=== PATIENT | female | born 1950 | race Two or more races ===

== ENCOUNTER 2024-06-14 19:57 | Emergency (ER) | payer MEDICAID, SELFPAY ==
--- NOTE | 2024-06-14 20:01 | ED_ITS ---
HPI - General Adult General Chief complaint: General Medical Stated complaint: BP unstable Time Seen by Provider: 06/14/24 23:16 Source: patient and family Mode of arrival: ambulatory Limitations: no limitations History of Present Illness ED Provider: Dr. Carolyn Barnes HPI narrative: Patient comes to emergency room complaining of high blood pressure. Patient states that at home she noticed that her blood pressure was 147/90. patient states that she takes lisinopril 5 mg daily. Patient reports dizziness. Patient denies unsteadiness, denies room spinning, denies lightheadedness. No chest pain or shortness of breath. No lower extremity edema. At this time, patient is asymptomatic. On arrival, patient's blood pressure 157/70 Related Data Previous Rx's ?Medication ?Instructions ?Recorded lisinopril 10 mg tablet 10 mg PO DAILY #30 tabs 06/14/24 Allergies Allergy/AdvReac Type Severity Reaction Status Date / Time aspirin Allergy Anaphylaxis Verified 06/14/24 20:06 Review of Systems 2 Review of Systems: Constitutional : No Weight loss, No Fever, No Chills, No Night Sweats, No Fatigue, No Malaise ENT/Mouth : No Hearing loss, No Ear Pain, No Nasal Congestion, No Sinus Pain, No Hoarseness, No sore throat, No Rhinorrhea, No Swallowing Difficulty Eyes: No Eye Pain, No Swelling, No Redness, No Foreign Body, No Discharge, No Vision Changes Cardiovascular : Complaining of high blood pressure, No Chest Pain, No SOB, No Dyspnea on Exertion, No Orthopnea, No Edema, No Palpitations Respiratory : No Cough, No Sputum, No Wheezing, No Smoke Exposure, No Dyspnea Gastrointestinal : No Nausea, No Vomiting, No Diarrhea, No Constipation, No abdominal Pain, No Hematochezia, No Melena Genitourinary : no irregular bleeding, No Dysuria, No Urinary Frequency, No Hematuria, No Urinary Incontinence, No Urgency, No Flank Pain, No Urinary Flow Changes, No Hesitancy Musculoskeletal : No joint pain, No Myalgias, No Joint Swelling Skin : No Skin Lesions, No rash Neuro : No Weakness, No Numbness, No Paresthesias, No Loss of Consciousness, No Dizziness, No Headache Psych : No Anxiety/Panic, No Depression, No SI/HI/AH/VH, No Social Issues, Heme/Lymph: No Bruising, No Bleeding,No Lymphadenopathy Endocrine : No Polyuria, No Polydipsia, No Temperature Intolerance Physical Exam ED Vital Signs: Vital Signs - 24 hr 06/14/24 20:02 Temperature 98.2 F Pulse Rate 95 Respiratory Rate 18 Blood Pressure 157/70 H Pulse Oximetry 100 Oxygen Delivery Method Room Air BMI result Body Mass Index 19.1 Const Other: Appearance: Alert. Oriented X3. No acute distress. Eyes: Pupils equal, round and reactive to light. ENT: Pharynx normal. Neck: Normal inspection. Neck supple. No lymph nodes noted. No crepitus CVS: Normal heart rate and rhythm. Pulses normal. Normal S1 and S2 Respiratory: No respiratory distress. Breath sounds normal. No Wheezing. No rales Abdomen: Soft and nontender. No rigidity. No distention. Skin: Skin warm and dry. Normal skin color. Normal skin turgor. Extremities: No lower extremity edema. No Lacerations. No Rash Neuro: Oriented X 3. No motor deficit. No sensory deficit. Moving all extremities. No slurred speech. CN 2 through 12 grossly intact Psych: calm, cooperative, normal affect Course Course Course Narrative: This is an RME performed by Papo Abebe TRACK REPAIR WORKER: Additional HPI, ROS, PE not included below will be deferred to primary provider. Patient is a 73-year-old female who presents emergency department for evaluation. Home automated blood pressure machine with a wrist cuff, blood pressure reading of 147/90. Endorsing dizziness, headache, palpitations intermittently. Reports that she takes lisinopril 5 mg daily, has not had any recent dosage changes. Denies vision changes, neck pain or stiffness, chest pain. Plan: Given mildly elevated blood pressure reading 157/70 with associated dizziness palpitations will obtain serum labs in addition to ECG, viral serologies Medical Decision Making Medical Decision Making [facility] Narrative: My interpretation of EKG: Normal sinus rhythm, heart rate 82, no ST segment depression or elevation, no T-wave inversion, QTC 425 My interpretation of labs: Normal hematology and chemistry Patient's blood pressure in the 140s systolic. Discussed with the patient to increase her lisinopril to 10 mg. Patient agrees with plan. Patient will follow-up with PCP Lab Data [facility] Lab Attestation statement: I reviewed the patient's lab results. 06/14/24 20:28 06/14/24 20:28 Labs: Lab Results 06/14/24 Range/Units 20:28 WBC 6.1 (4.8-10.8) X10*3/uL RBC 3.99 L (4.20-5.50) X10*6/uL Hgb 11.9 L (12.0-16.0) g/dl Hct 37.5 (37.0-47.0) % MCV 94.0 (80.0-98.0) fL MCH 29.8 (27.0-33.0) pg MCHC 31.7 (31.0-35.0) g/dl RDW 13.8 (11.0-16.0) % Plt Count 191 (160-400) X10*3/uL MPV 9.4 (9.4-12.3) fL Immature Gran % (Auto) 0.2 (0.0-0.4) % Neut % (Auto) 47.9 (45-73) % Lymph % (Auto) 42.4 H (20-40) % Bracken % (Auto) 6.2 (2-11) % Eos % (Auto) 2.5 (0-4) % Baso % (Auto) 0.8 (0-2) % Lymph # (Auto) 2.6 (1.2-4.9) X10*3/uL Bracken # (Auto) 0.4 (0.1-1.2) X10*3/uL Eos # (Auto) 0.2 (0.0-0.4) X10*3/uL Baso # (Auto) 0.1 (0.0-0.2) X10*3/uL Abs Immat Gran (auto) 0.01 (0.00-0.03) X10*3/uL Absolute Neuts (auto) 2.9 (2.0-8.3) x10*3/uL Absolute Nucleated RBC 0.000 (0.0-0.012) X10*3/uL Nucleated RBC % (auto) 0.0 (0.0-0.2) /100WBC PT 12.0 (10.9-12.4) SEC INR 1.0 (0.9-1.1) Sodium 144 (135-145) mmol/L Potassium 4.0 (3.3-5.1) mmol/L Chloride 111 H (96-108) mmol/L Carbon Dioxide 24 (22-29) mmol/L Anion Gap 13 (12-20) BUN 16 (9-16) mg/dL Creatinine 0.67 (0.5-1.4) mg/dL Estim Creat Clear Calc 57.5 Estimated GFR > 60 Random Glucose 129 H (60-115) mg/dL Calcium 8.9 (8.4-10.2) mg/dL Magnesium 2.1 (1.6-2.6) mg/dL Total Bilirubin 0.2 (0.0-1.0) mg/dL AST 21 (5-31) U/L ALT 9 (0-31) U/L Alkaline Phosphatase 94 (39-117) U/L Total Protein 6.8 (6.5-8.0) g/dL Albumin 3.9 (3.5-5.0) g/dL Influenza Type A (PCR) NEGATIVE (Negative) Influenza Type B (PCR) NEGATIVE (Negative) RSV RNA Qual (PCR) NEGATIVE (Negative) SARS-CoV-2 RNA (RT-PCR) NEGATIVE (Negative) Discharge Plan Discharge Clinical Impression: Chronic hypertension, Dizziness Patient Disposition: Home, Self-Care Instructions: Chronic Hypertension (ED), Dizziness (ED) Additional Instructions: Please follow-up with your primary care physician tomorrow. If you have any worsening or new symptoms, please return to the emergency room or call 911 Prescriptions: New lisinopril 10 mg tablet 10 mg PO DAILY Qty: 30 2RF
[2024-06-14 20:02] VITALS: BP 157/70; PULSE 95; RESP 18; TEMP 36.8; O2SAT 100; BMI 19.1
--- NOTE | 2024-06-14 20:05 | ECG_ITS ---
Test Reason : DIZZINESS Blood Pressure : */* mmHG Vent. Rate : 82 BPM Atrial Rate : 82 BPM P-R Int : 152 ms QRS Dur : 72 ms QT Int : 364 ms P-R-T Axes : 52 55 58 degrees QTcB Int : 425 ms Normal sinus rhythm Normal ECG No previous ECGs available Referred By: Dawn Abebe Electronically Signed By: BERTHA CARBAJAL MD
[2024-06-14 20:34] LABS: MANUAL DIFF FLAG NO
[2024-06-14 20:35] LABS: Basophils Absolute Auto 0.1 X10*3/uL (0.0-0.2); Basophils Percent Auto 0.8 % (0-2); Eosinophils Absolute Auto 0.2 X10*3/uL (0.0-0.4); Eosinophils Percent Auto 2.5 % (0-4); Hematocrit 37.5 % (37.0-47.0); Hemoglobin 11.9 g/dl (12.0-16.0); Imm Gran Abs Auto 0.01 X10*3/uL (0.00-0.03); Imm Gran Pct Auto 0.2 % (0.0-0.4); Lymphocytes Absolute Auto 2.6 X10*3/uL (1.2-4.9); Lymphocytes Percent Auto 42.4 % (20-40); Mean Corpuscular HGB Conc 31.7 g/dl (31.0-35.0); Mean Corpuscular Hemoglobin 29.8 pg (27.0-33.0); Mean Platelet Volume 9.4 fL (9.4-12.3); Monocytes Absolute Auto 0.4 X10*3/uL (0.1-1.2); Monocytes Percent Auto 6.2 % (2-11); Neutrophils Absolute Auto 2.9 x10*3/uL (2.0-8.3); Neutrophils Percent Auto 47.9 % (45-73); Platelet Count 191 X10*3/uL (160-400); Red Blood Count 3.99 X10*6/uL (4.20-5.50); Red Cell Distribution Width 13.8 % (11.0-16.0); White Blood Count 6.1 X10*3/uL (4.8-10.8)
[2024-06-14 20:49] LABS: Alanine Aminotransferase 9 U/L (0-31); Albumin Level 3.9 g/dL (3.5-5.0); Alkaline Phosphatase 94 U/L (39-117); Anion Gap 13 (12-20); Aspartate Amino Transferase 21 U/L (5-31); Bilirubin Total 0.2 mg/dL (0.0-1.0); Blood Urea Nitrogen 16 mg/dL (9-16); Calcium 8.9 mg/dL (8.4-10.2); Carbon Dioxide 24 mmol/L (22-29); Chloride 111 mmol/L (96-108); Creatinine Clr Calc Pharmacy 57.5; Estimated Glomerular Filt Rate > 60; Glucose Random 129 mg/dL (60-115); Magnesium 2.1 mg/dL (1.6-2.6); Sodium 144 mmol/L (135-145); Total Protein 6.8 g/dL (6.5-8.0)
[2024-06-14 21:11] LABS: Influenza A PCR NEGATIVE (Negative); Influenza B PCR NEGATIVE (Negative); Resp Syncy Virus RNA Qual PCR NEGATIVE (Negative); SARS COV2 PCR INHOUSE NEGATIVE (Negative)
--- OUTSIDE RECORDS SUMMARY | 2024-06-14 23:35 | XMS_ITS | Clinical Summary ---
Author Organization [facility] Address [address] [place] [address] Care Team Providers Care Manager Field Name Role Phone David Atwood MD Primary Care Provider [phone] Allergies Active Allergy Reactions Criticality Noted Date Comments Aspirin Buff, Al Hyd-Mg Hyd Urticarial Rash Medications No known medications Social History Tobacco Use Types Packs/Day Years Used Date Smoking Tobacco: Never Assessed Comments Unknown Sex and Gender Information Value Date Recorded Sex Assigned at Not on file Legal Sex Female 12:43 AM EDT Gender Identity Not on file Sexual Orientation Not on file Plan of Treatment Health Maintenance Due Date Last Done Comments Hepatitis C Screening 1952 DTaP/Tdap/Td (1 - Tdap) 1970 Mammogram/Breast Imaging 1992 Pneumococcal 50+ years (1 of 1 - PCV) 2002 Zoster (Shingrix) (1 of 2) 2002 Bone Density 2017 COVID-19 Vaccine ( - 2023-2 5 season) 2024 Influenza (#1) 2024 RSV (1 - 1-dose 75+ series) 10/13/2027 HPV Vaccine Aged Out No longer eligi ble based on patient's age to complete this topic Hep A Aged Out No longer eligi ble based on patient's age to complete this topic Hep B Aged Out No longer eligi ble based on patient's age to complete this topic Hib Aged Out No longer eligi ble based on patient's age to complete this topic Meningococcal ACWY Aged Out No longer eligible based on patient's age to complete this topic Pap Smear Discontinued Zoster (Zostavax) Discontinued Care Teams Manager Field Relationship Specialty Start Date End Date David Atwood MD [facility] [address] [place] [address] PCP - General 11/03/08
[2024-06-14 23:44] VITALS: BP 137/77; PULSE 75; RESP 16; TEMP 36.8; O2SAT 98
== END 2024-06-14 23:45 | disposition home or self-care (01) ==
PROVIDERS: Nurse Practitioner Family; Emergency Provider Emergency Medicine
DX: R42 Dizziness and giddiness (principal); I10 Essential (primary) hypertension; Z03.818 Encounter for observation for suspected exposure to other biological agents ruled out; Z79.899 Other long term (current) drug therapy
CPT/HCPCS: 0241U; 80053; 83735; 85025; 85610; 93005; 99283

== ENCOUNTER → 2024-06-14 20:05 | Outpatient (BNV) | payer MEDICAID, SELFPAY | PROVIDERS: Emergency Provider Emergency Medicine; Visit Provider Internal Medicine Cardiovascular Disease | DX: R42 Dizziness and giddiness (principal) | CPT/HCPCS: 93010 ==

== ENCOUNTER 2024-07-02 18:30 | Emergency (ER) | payer MEDICAID, SELFPAY ==
[2024-07-02 18:39] VITALS: BP 106/49; BP 120/70; PULSE 90; PULSE 97; RESP 16; TEMP 36.8; O2SAT 100; O2SAT 97; BMI 21.5
--- OUTSIDE RECORDS SUMMARY | 2024-07-02 19:51 | XMS_ITS | Clinical Summary ---
Author Organization [facility] Address [address] [place] [address] Care Team Providers Care Hall Manager Name Role Phone David Atwood MD Primary Care Provider Allergies Active Allergy Reactions Criticality Noted Date [...] Smear Discontinued Zoster (Zostavax) Discontinued Care Teams Hall Manager Relationship Specialty Start Date End Date David Atwood MD [facility] [address] [place] [address] PCP - General 11/03/08
[2024-07-02 20:22] LABS: Basophils Percent Auto 0.2 % (0-2); Eosinophils Absolute Auto 0.1 X10*3/uL (0.0-0.4); Eosinophils Percent Auto 0.5 % (0-4); Hematocrit 42.4 % (37.0-47.0); Hemoglobin 13.7 g/dl (12.0-16.0); Imm Gran Abs Auto 0.06 X10*3/uL (0.00-0.03); Imm Gran Pct Auto 0.5 % (0.0-0.4); Lymphocytes Absolute Auto 0.5 X10*3/uL (1.2-4.9); Lymphocytes Percent Auto 4.1 % (20-40); MANUAL DIFF FLAG SCAN; Mean Corpuscular HGB Conc 32.3 g/dl (31.0-35.0); Mean Corpuscular Hemoglobin 29.7 pg (27.0-33.0); Mean Corpuscular Volume 91.8 fL (80.0-98.0); Mean Platelet Volume 8.9 fL (9.4-12.3); Monocytes Absolute Auto 0.5 X10*3/uL (0.1-1.2); Monocytes Percent Auto 3.8 % (2-11); Neutrophils Absolute Auto 11.4 x10*3/uL (2.0-8.3); Neutrophils Percent Auto 90.9 % (45-73); Platelet Count 252 X10*3/uL (160-400); Red Blood Count 4.62 X10*6/uL (4.20-5.50); Red Cell Distribution Width 14.1 % (11.0-16.0); SCAN SMEAR FLAG 1; White Blood Count 12.5 X10*3/uL (4.8-10.8)
[2024-07-02] MEDS: 0.9 % Sodium Chloride 500 ML IV (20:25)
[2024-07-02] MEDS: ondansetron HCL 4 MG/2 ML VIAL IVPUSH (20:25)
[2024-07-02] MEDS: Dicyclomine HCl 10 MG CAPSULE 20 MG PO (20:31)
[2024-07-02 20:36] LABS: Alanine Aminotransferase 12 U/L (0-31); Albumin Level 4.2 g/dL (3.5-5.0); Alkaline Phosphatase 99 U/L (39-117); Anion Gap 13 (12-20); Aspartate Amino Transferase 26 U/L (5-31); Bilirubin Total 0.6 mg/dL (0.0-1.0); Blood Urea Nitrogen 19 mg/dL (9-16); Calcium 9.5 mg/dL (8.4-10.2); Carbon Dioxide 25 mmol/L (22-29); Chloride 107 mmol/L (96-108); Creatinine Clr Calc Pharmacy 52.2; Estimated Glomerular Filt Rate > 60; Glucose Random 129 mg/dL (60-115); Lipase 16 U/L (8-78); Sodium 141 mmol/L (135-145); Total Protein 7.5 g/dL (6.5-8.0)
[2024-07-02 20:39] LABS: SLIDE REVIEW VERIFIED
[2024-07-02 20:58] LABS: Influenza A PCR NEGATIVE (Negative); Influenza B PCR NEGATIVE (Negative); Resp Syncy Virus RNA Qual PCR NEGATIVE (Negative); SARS COV2 PCR INHOUSE NEGATIVE (Negative)
[2024-07-02 22:00] VITALS: BP 114/54; PULSE 88; RESP 16; TEMP 37.6; O2SAT 99
--- NOTE | 2024-07-02 23:23 | ED_ITS ---
HPI - Nausea/Vomiting/Diarrhea General Chief complaint: Nausea/Vomiting/Diarrhea Stated complaint: vomiting/diarrhea after eating Time Seen by Provider: 07/02/24 19:10 Source: patient Limitations: no limitations History of Present Illness ED Provider: Tricia Álvarez PA-C HPI Narrative: 73-year-old female with a history of hypertension presents with nausea vomiting diarrhea since this morning. Patient states she ate an egg with toes then had nausea vomiting diarrhea. The patient had 1 episode of diarrhea, her vomiting has subsided, she is minimally nauseous at this time. No sick contacts with same symptoms, denies abdominal pain or fever. Associated nausea: Yes Related Data Previous Rx's ?Medication ?Instructions ?Recorded lisinopril 10 mg tablet 10 mg PO DAILY #30 tabs 06/14/24 ondansetron HCl 4 mg tablet 4 mg PO Q8H PRN nausea and 07/02/24 vomiting #10 tabs Allergies Allergy/AdvReac Type Severity Reaction Status Date / Time aspirin Allergy Anaphylaxis Verified 07/02/24 18:41 Review of Systems 2 Review of Systems: Yes all other systems are reviewed and are negative Constitutional: Constitutional: Denies fatigue and Denies fever(s) Cardiovascular: Cardiovascular: Denies chest pain and Denies dyspnea Respiratory: Respiratory: Denies cough and Denies dyspnea Gastrointestinal: Gastrointestinal: Denies abdominal pain, Reports diarrhea, Reports nausea and Reports vomiting Endocrine: Endocrine: Denies fatigue PMFSH Past Medical History Attestation statement: The following information was validated with the patient. Social History Social History Advance Directives: Yes Advance Directives Information Provided: Yes Advance Directives on File: No Physical Exam 2 Vital Signs: Vital Signs: Last Vital Signs Temp 99.7 F 07/02/24 22:00 Pulse 88 07/02/24 22:00 Resp 16 07/02/24 22:00 BP 114/54 L 07/02/24 22:00 Pulse Ox 99 07/02/24 22:00 O2 Del Method Room Air 07/02/24 22:00 BMI result Body Mass Index 21.5 Const: Other: Alert well-appearing Orientation/consciousness: patient oriented x3 Resp: Effort & Inspection: normal respiratory effort Cardio: Other: Normal peripheral perfusion GI: Other: Abdomen is soft, nontender nondistended no guarding Skin: Other: Warm dry no rash Neuro: General: patient oriented x3, no focal motor deficits and CN's II-XI intact bilaterally Psych: Other: Cooperative Course Reevaluation(s) Reevaluation #1: P.o. challenge Reevaluation #2: ate drank feels well Medications Administered Discontinued Medications Generic Name Dose Route Start Last Admin Trade Name Elías PRN Reason Stop Dose Admin Dicyclomine HCl 20 mg 07/02/24 20:20 07/02/24 20:31 Dicyclomine Hcl 10 Mg Capsule PO 07/02/24 20:21 20 mg ONCE ONE Administration Sodium Chloride 500 mls @ 500 mls/hr 07/02/24 19:11 07/02/24 22:42 Ns IV 07/02/24 20:10 Infused .Q1H ONE Infusion Ondansetron HCl 4 mg 07/02/24 19:11 07/02/24 20:25 Ondansetron Hcl 4 Mg/2 Ml Vial IVPUSH 07/02/24 19:12 4 mg ONCE ONE Administration Medical Decision Making Medical Decision Making MDM Narrative: 73-year-old female with a history of hypertension presents with nausea vomiting diarrhea since this morning. Patient states she ate an egg with toes then had nausea vomiting diarrhea. The patient had 1 episode of diarrhea, her vomiting has subsided, she is minimally nauseous at this time. No sick contacts with same symptoms, denies abdominal pain or fever. No recent travel, no use of antibiotics and no hospitalization. Problem: Age History: Per patient I have considered the following differential diagnoses: C diff, traveler's diarrhea, diverticulitis, viral gastroenteritis Plan: We will be obtaining screening labs. Giving IV fluid and Zofran. The patient has no risk factors for C diff or traveler's diarrhea, her exam was unremarkable, there was no pain elicited with palpation of the abdomen she does not warrant imaging. This is likely viral gastroenteritis. We will obtain a viral panel as well I have independently reviewed the following tests: Labs: Slight leukocytosis, not anemic, no electrolyte abnormality, viral panel negative Lab Data 07/02/24 20:16 07/02/24 20:15 Labs: Lab Results 07/02/24 07/02/24 Range/Units 20:15 20:16 WBC 12.5 H (4.8-10.8) X10*3/uL RBC 4.62 (4.20-5.50) X10*6/uL Hgb 13.7 (12.0-16.0) g/dl Hct 42.4 (37.0-47.0) % MCV 91.8 (80.0-98.0) fL MCH 29.7 (27.0-33.0) pg MCHC 32.3 (31.0-35.0) g/dl RDW 14.1 (11.0-16.0) % Plt Count 252 D (160-400) X10*3/uL MPV 8.9 L (9.4-12.3) fL Immature Gran % (Auto) 0.5 H (0.0-0.4) % Neut % (Auto) 90.9 H (45-73) % Lymph % (Auto) 4.1 L (20-40) % Rock % (Auto) 3.8 (2-11) % Eos % (Auto) 0.5 (0-4) % Baso % (Auto) 0.2 (0-2) % Lymph # (Auto) 0.5 L (1.2-4.9) X10*3/uL Rock # (Auto) 0.5 (0.1-1.2) X10*3/uL Eos # (Auto) 0.1 (0.0-0.4) X10*3/uL Baso # (Auto) 0.0 (0.0-0.2) X10*3/uL Abs Immat Gran (auto) 0.06 H (0.00-0.03) X10*3/uL Absolute Neuts (auto) 11.4 H (2.0-8.3) x10*3/uL Absolute Nucleated RBC 0.000 (0.0-0.012) X10*3/uL Nucleated RBC % (auto) 0.0 (0.0-0.2) /100WBC Smear Tech's Comments VERIFIED Sodium 141 (135-145) mmol/L Potassium 4.0 (3.3-5.1) mmol/L Chloride 107 (96-108) mmol/L Carbon Dioxide 25 (22-29) mmol/L Anion Gap 13 (12-20) BUN 19 H (9-16) mg/dL Creatinine 0.71 (0.5-1.4) mg/dL Estim Creat Clear Calc 52.2 Estimated GFR > 60 Random Glucose 129 H (60-115) mg/dL Calcium 9.5 D (8.4-10.2) mg/dL Total Bilirubin 0.6 (0.0-1.0) mg/dL AST 26 (5-31) U/L ALT 12 (0-31) U/L Alkaline Phosphatase 99 (39-117) U/L Total Protein 7.5 (6.5-8.0) g/dL Albumin 4.2 (3.5-5.0) g/dL Lipase 16 (8-78) U/L Influenza Type A (PCR) NEGATIVE (Negative) Influenza Type B (PCR) NEGATIVE (Negative) RSV RNA Qual (PCR) NEGATIVE (Negative) SARS-CoV-2 RNA (RT-PCR) NEGATIVE (Negative) Discharge Plan Discharge Clinical Impression: Gastroenteritis Patient Disposition: Home, Self-Care Instructions: Gastroenteritis (ED) Additional Instructions: All of your screening labs in the viral panel were negative. You likely have the gastrointestinal virus it has been circulating within the community. See home care instructions. Uses Zofran as needed for nausea. Follow up with your primary care provider as needed. Prescriptions: New ondansetron HCl 4 mg tablet 4 mg PO Q8H PRN (Reason: nausea and vomiting) Qty: 10 0RF No Action lisinopril 10 mg tablet 10 mg PO DAILY Qty: 30 2RF Print Language: Mongolian
[2024-07-02 23:48] VITALS: BP 116/58; PULSE 85; RESP 16; TEMP 37.4; O2SAT 99
--- NOTE | 2024-07-03 00:04 | PC.NURSE ---
took over care from GURWINDER Hopkins, reviewed discharge instructions with pt. pt verbalized understanding, no sign of distress upon discharge, pt had a steady gait, pt discharge home with family member.
[2024-07-03 00:05] VITALS: BP 116/58; PULSE 85; RESP 16; TEMP 37.4; O2SAT 99
== END 2024-07-03 00:06 | disposition home or self-care (01) ==
PROVIDERS: Physician Assistant Medical; Emergency Provider Emergency Medicine
DX: K52.9 Noninfective gastroenteritis and colitis, unspecified (principal); R11.2 Nausea with vomiting, unspecified; Z03.818 Encounter for observation for suspected exposure to other biological agents ruled out
CPT/HCPCS: 0241U; 36415; 80053; 83690; 85025; 96361; 96374; 99284; J2405

== ENCOUNTER 2024-07-28 10:39 | Outpatient (AMB) | payer MEDICAID, SELFPAY ==
[2024-07-28 10:48] VITALS: BP 106/62; PULSE 87; TEMP 36.7; O2SAT 99; BMI 20.5
--- NOTE | 2024-07-28 10:48 | MHC.PC.OV ---
Vital Signs 07/28/24 10:48 Height 5 ft Weight 105 lb BMI 20.5 BP 106/62 Blood Pressure Location Lt brachial Position Sitting Pulse 87 Pulse Source Pulse Oximeter Temp 98.1 F Temp Source Oral Pulse Oximetry (%) 99 Oxygen Delivery Method Room Air Intake Visit Reasons: establish care Intake Note: Patient is a new patient here to establish care. Transferring care from [facility]; Pt does not have previous PCP information at this time. Medical records have not been requested and have not been received. 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 Name: Used tablet- Jose [id number] Accompanied by: Son Allergies aspirin Allergy (Verified 07/28/24 11:05) Anaphylaxis Medication List - Last Reconciled 08/09/24 by SHERRON Bell lidocaine 5% 2 patches topical DAILY 30 days lisinopril 10 mg PO DAILY Tobacco use date assessed: 07/28/24 Fall risk assessment: No Falls in past year Last assessed Fall Risk: 07/28/24 Dental Screening Dental Screen Date: 07/28/24 Did you have a dental visit in the last 12 months?: Yes Did you have a dental problem in the last 6 months where you did not have access to dental care?: No Was dental information given to patient?: Patient has dentist HPI establish care HPI Details The patient is a 73-year-old female presenting to establish care Previous PCP: Does not remember name Last visit: Reports that she had a PCP about 5 or 6 years ago, reports having a PCP in [employer] Last PE: Few years ago Specialist: no OBGYN: Past medical history: osteoporosis, prediabetes, high blood pressure Medications: lisinopril 10 mg Family HX:Diabetes -cousin, high cholesterol -sisters, mother and dad go to the doctor's often grandfather alzheimer's and grandmother glaucoma Problem: left side of back (thoracic) spine deformity-hurts intermittently. 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 Reports that she has a blood pressure but she has it well controlled excellent Reports that she has been watching what she eats and walks frequently Reports that her average blood pressure is around 120/80 Reports that she has been taking lisinopril 10 mg for about 8 years now The patient denies shortness of breath, chest pain, heart palpitation or dizziness Denies constipation or abdominal pain, denies any change in bowel habits, denies any urinary symptoms colonoscopy: reports doing this in the past about two years ago and was told to repeat this in 5 years Mammogram: reports have this done before and it was normal but she is not 100% sure where she had it done PT-1 -will need this set up. [facility] Medical History (Updated 08/09/24 @ 19:24 by SHERRON Bell) Scoliosis HTN (hypertension) Pre-diabetes High cholesterol Osteoporosis Surgical History H/O total hysterectomy Family History (Updated 08/09/24 @ 19:28 by SHERRON Bell) Maternal Grandfather Alzheimer dementia Maternal Grandmother Glaucoma Sister High cholesterol Unknown Diabetes Social History Household Members Other:: Adult son Housing: Apartment Are you a primary customer care voice consultant to a significant other at home: No Alcohol intake: never Patient Tobacco Use Status: Never used Tobacco e-Cigarette/Vaping Use: Never Used Second Hand Smoke Exposure: No service: No Cognitive needs: No Hearing needs: No Vision needs: Yes (Glasses) Questionnaire PHQ-9 Over the last 2 weeks, how often have you been bothered by any of the following problems? 1. Little interest or pleasure in doing things: not at all 2. Feeling down, depressed, or hopeless: not at all 3. Trouble falling or staying asleep, or sleeping too much: not at all 4. Feeling tired or having little energy: not at all 5. Poor appetite or overeating: not at all 6. Feeling bad about yourself - or that you are a failure or have let yourself or your family down: not at all 7. Trouble concentrating on things, such as reading the newspaper or watching television: not at all 8. Moving or speaking so slowly that other people could have noticed. Or the opposite - being so fidgety or restless that you have been moving around a lot more than usual: not at all 9. Thoughts that you would be better off or of hurting yourself in some way: not at all Total score: 0 Depression Screening Interpretation: Negative Depression Screening Done: Yes 41486 - PHQ-9 Billing: Yes Source: Developed by Drs. Ton Krause, Ángela Guevara, Kash Gibson and colleagues, with an educational any from [employer]. LEIA-7 AMB Questionnaire LEIA-7 Date LEIA - 7 assessed: 07/28/24 Feeling nervous, anxious, or on edge: 1 = Several days Not being able to stop or control worryin = Not at all Worrying too much about different things: 0 = Not at all Trouble relaxin = Several days Being so restless that it is hard to sit still: 0 = Not at all Becoming easily annoyed or irritable: 0 = Not at all Feeling afraid as if something awful might happen: 0 = Not at all Total LEIA-7 score (0-4 normal; 5-9 mild; 10-14 moderate; 15-21 severe): 2 Source: Developed by Drs. Ton Krause, Ángela Guevara, Kash Gibson and colleagues, with an educational any from [employer]. LEIA-7 Assessment Billing LEIA-7 Assessment Tool: LEIA-7 Assessment 91102 Review of Systems Const Denies headache(s) Eyes Denies loss of vision ENT Denies vertigo, Denies dizziness, Denies headache(s) and Denies sore throat Card Denies chest pain, Denies leg edema and Denies lightheadedness Resp Denies cough, Denies hemoptysis and Denies wheezing GI Denies abdominal pain, Denies melena, Denies constipation, Denies diarrhea and Denies vomiting Denies urinary frequency, Denies dysuria and Denies urinary urgency Musc Reports back pain (from thoracic down to lumbar), Reports arthralgias, Denies joint swelling, Denies numbness, Reports radiating pain into limb (left side) and Denies tingling Neuro Denies Abnormal speech present, Denies behavioral changes, Denies vertigo, Denies dizziness, Denies headache(s), Denies loss of vision, Denies memory loss, Denies numbness and Denies tingling Psych Denies anxiety, Denies behavioral changes, Denies depression, Denies memory loss and Denies panic attacks Andrew/Lymph Denies easy bleeding and Denies easy bruising Aller/Immun Denies wheezing Physical exam (Primary Care) Vital Signs: Last Vital Signs Temp 98.1 F 07/28/24 10:48 Pulse 87 07/28/24 10:48 BP 106/62 07/28/24 10:48 Pulse Ox 99 07/28/24 10:48 Oxygen Delivery Method Room Air 07/28/24 10:48 BMI result Body Mass Index 20.5 Tobacco/Smoking Status: Tobacco use Status Tobacco use date assessed 07/28/24 07/28/24 11:01 Patient Tobacco Use Status Never used Tobacco 07/28/24 11:01 e-Cigarette/Vaping Use Never Used 07/28/24 11:01 PHQ-9: PHQ-9 Score PHQ-9: Total score 0 08/09/24 18:12 Depression Screening Interpretation: Negative Const General: healthy appearing, no acute distress, alert and awake Nutritional Appearance: well nourished Orientation/consciousness: oriented to person, oriented to place and oriented to time HENMT Ears: TM's normal bilaterally General nose exam: Normal nasal mucous membranes and turbinates present Eyes Conjunctivae: conjunctivae normal Sclerae: sclerae normal Pupils: Equal, round and reactive pupils present Neck Neck: Yes no lymphadenopathy and Yes no JVD Thyroid: Thyroid normal Carotids: no bruits Resp Effort & Inspection: normal respiratory effort and not tachypneic Auscultation: no crackles, no rales, no rhonchi and no wheezes Cardio Rate: regular rate Rhythm: regular rhythm Heart sounds: no murmurs and normal S1 and S2 GI Palpation (GI): Soft to palpation, nontender, no hepatomegaly and no splenomegaly Auscultation: normal bowel sounds Back/Spine/Pelvis Cervical Spine: No cervical ROM normal Thoracic/Lumbar Spine: thoracic spinal tenderness, lumbar spinal tenderness and straight leg raise positive (patient unable to tolerate lying flat to complete exam) Skin General skin exam: no rashes or lesions noted and dry skin Neuro General: oriented to person, oriented to place and oriented to time Cranial nerves: Yes Equal, round and reactive pupils present Speech: No Abnormal speech present Gait exam (Neuro): Normal gait present Motor exam (neuro): no tremor noted Extrem Right upper extremity: full ROM Left upper extremity: full ROM Right lower extremity: full ROM; no edema Left lower extremity: full ROM; no edema Psych Mental Status: mental status grossly normal Speech and movement: Normal speech and movement present Affect: normal affect Attitude: cooperative Thought process: Normal thought process present Coding Level of Care Code New Pt Level 4 (76605) Diagnoses High cholesterol E78.00 Hypertension, unspecified type I10 Hypertension type: unspecified Scoliosis of thoracic spine, unspecified scoliosis type M41.9 Scoliosis type: unspecified scoliosis Spinal region: thoracic Additional Codes LEIA-7 Assessment Billing - LEIA-7 Assessment Tool: LEIA-7 Assessment 13360 ([id number]) PHQ-9 - 40738 - PHQ-9 Billing: Yes ([id number]) Time Spent (min) 43 Assessment & Plan Assessment & Plan (1) High cholesterol: Code(s): E78.00 - Pure hypercholesterolemia, unspecified Category: Medical Plan: Patient reports a history of high cholesterol she is not on any medication for this. Reports that she just has been eating better and walking frequently. We will send the patient for labs to further evaluate. (2) HTN (hypertension): Code(s): I10 - Essential (primary) hypertension Category: Medical Qualifiers: Hypertension type: unspecified Qualified Code(s): I10 - Essential (primary) hypertension Plan: Reports hypertension. Reports taking lisinopril for about 8 years. Reports taking half of the medication at times. Per patient she takes what she needs. Reinforced low-sodium diet. Blood pressure within normal limits in office. Continue lisinopril 10 mg daily (3) Scoliosis: Code(s): M41.9 - Scoliosis, unspecified Category: Medical Qualifiers: Scoliosis type: unspecified scoliosis Spinal region: thoracic Qualified Code(s): M41.9 - Scoliosis, unspecified Plan: Patient reports that her back is painful but she does not like taking medications. She has been dealing with this by resting and stretching. Will do an x-ray of the spine to further evaluate Orders: Orders Complete Blood Count Auto Diff 07/29/24 Z00.00 - Encounter for general adult medical examination without abnormal findings, R73.03 - Prediabetes, M54.50 - Low back pain, unspecified Comprehensive Ocate. Panel Fast 07/29/24 Z00.00 - Encounter for general adult medical examination without abnormal findings, R73.03 - Prediabetes, M54.50 - Low back pain, unspecified Vitamin D 25-OH Total 07/29/24 Z00.00 - Encounter for general adult medical examination without abnormal findings, R73.03 - Prediabetes, M54.50 - Low back pain, unspecified Lipid Panel 07/29/24 Z00.00 - Encounter for general adult medical examination without abnormal findings, R73.03 - Prediabetes, M54.50 - Low back pain, unspecified Glucose Fasting 07/29/24 Z00.00 - Encounter for general adult medical examination without abnormal findings, R73.03 - Prediabetes, M54.50 - Low back pain, unspecified UA CC w/rflx Micro + Cult 07/29/24 Z00.00 - Encounter for general adult medical examination without abnormal findings, R73.03 - Prediabetes, M54.50 - Low back pain, unspecified TSH reflex Free T4 07/29/24 Z00.00 - Encounter for general adult medical examination without abnormal findings, R73.03 - Prediabetes, M54.50 - Low back pain, unspecified Hemoglobin A1c 07/29/24 Z00.00 - Encounter for general adult medical examination without abnormal findings, R73.03 - Prediabetes, M54.50 - Low back pain, unspecified XR lumbar spine 2-3V 07/29/24 M54.9 - Dorsalgia, unspecified Medications: New lidocaine 5% leave on most painful area for up to 12 hrs 2 patches topical DAILY 30 ea 3RF 30 days M54.50 - Low back pain, unspecified Discontinued ondansetron HCl Discontinued Reason: Patient no longer taking 4 mg PO Q8H PRN 10 tabs 0RF nausea and vomiting
== END 2024-07-28 11:46 | disposition home or self-care (01) ==
LOC: HO.HMCH 10:40
DX: E78.00 Pure hypercholesterolemia, unspecified (principal); I10 Essential (primary) hypertension; M41.9 Scoliosis, unspecified

== ENCOUNTER → 2024-07-28 10:39 | Outpatient (BNVA) | payer MEDICAID, SELFPAY | DX: E78.00 Pure hypercholesterolemia, unspecified (principal); I10 Essential (primary) hypertension; M41.9 Scoliosis, unspecified | CPT/HCPCS: 96127; 99202 ==

== ENCOUNTER 2024-07-29 10:49 | Outpatient (REF) | payer MEDICAID, SELFPAY ==
--- NOTE | ~2024-07-29 | XR_ITS ---
EXAMINATION: XR LUMBOSACRAL SPINE CLINICAL INFORMATION: M54.9 - Dorsalgia, unspecified COMPARISON: None available. TECHNIQUE: Three views of the lumbosacral spine. FINDINGS: Dextroconvex rotoscoliosis apex at L2. Multilevel marginal osteophyte formation and endplate sclerosis and decreased intervertebral disc height more conspicuous at L5-S1 and L2-3 levels. No acute cortical disruption or gross malalignment. Vascular calcifications, abdominal aorta. 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 Electronically signed by: Thomas Porras MD 07/29/2024 02:53 PM EDT
[2024-07-29 11:08] LABS: MANUAL DIFF FLAG NO
[2024-07-29 11:21] LABS: Basophils Percent Auto 0.8 % (0-2); Eosinophils Absolute Auto 0.1 X10*3/uL (0.0-0.4); Eosinophils Percent Auto 1.3 % (0-4); Hematocrit 40.5 % (37.0-47.0); Hemoglobin 13.1 g/dl (12.0-16.0); Imm Gran Abs Auto 0.01 X10*3/uL (0.00-0.03); Imm Gran Pct Auto 0.2 % (0.0-0.4); Lymphocytes Absolute Auto 2.1 X10*3/uL (1.2-4.9); Lymphocytes Percent Auto 43.6 % (20-40); Mean Corpuscular HGB Conc 32.3 g/dl (31.0-35.0); Mean Corpuscular Hemoglobin 29.9 pg (27.0-33.0); Mean Corpuscular Volume 92.5 fL (80.0-98.0); Mean Platelet Volume 9.1 fL (9.4-12.3); Monocytes Absolute Auto 0.3 X10*3/uL (0.1-1.2); Monocytes Percent Auto 6.1 % (2-11); Neutrophils Absolute Auto 2.3 x10*3/uL (2.0-8.3); Platelet Count 251 X10*3/uL (160-400); Red Blood Count 4.38 X10*6/uL (4.20-5.50); Red Cell Distribution Width 14.2 % (11.0-16.0); White Blood Count 4.7 X10*3/uL (4.8-10.8)
[2024-07-29 11:35] LABS: Estimated Average Glucose 120 mg/dL; Hemoglobin A1c % 5.8 % (<6.0); Total Hemoglobin (HGBA1C) 3467.1938 umol/L
[2024-07-29 11:52] LABS: Appearance Urine Clear; Color Urine Yellow; Glucose Urine UA Negative (Negative); Leukocyte Esterase Urine Negative (Negative); Nitrite Urine Negative (Negative); Urine Blood Negative (Negative); Urine Ketones 15 mg/dL (Negative); Urine Protein Negative (Neg-Trace)
[2024-07-29 12:14] LABS: Alanine Aminotransferase 15 U/L (0-31); Albumin Level 4.3 g/dL (3.5-5.0); Alkaline Phosphatase 101 U/L (39-117); Anion Gap 12 (12-20); Aspartate Amino Transferase 23 U/L (5-31); Bilirubin Total 0.5 mg/dL (0.0-1.0); Blood Urea Nitrogen 11 mg/dL (9-16); Calcium 9.8 mg/dL (8.4-10.2); Carbon Dioxide 30 mmol/L (22-29); Chloride 107 mmol/L (96-108); Cholesterol 272 mg/dL (<200); Estimated Glomerular Filt Rate > 60; Glucose Fasting 97 mg/dL (60-99); HDL Cholesterol 86 mg/dL (>40); LDL Cholesterol Calculated 171 mg/dL (<100); Potassium 4.6 mmol/L (3.3-5.1); Sodium 144 mmol/L (135-145); Total Protein 7.2 g/dL (6.5-8.0); Triglycerides 75 mg/dL (<150)
[2024-07-29 12:17] LABS: TSH reflex Free T4 1.52 uIU/mL (0.32-4.0); Vitamin D 25-OH Total 29.6 ng/mL (>30)
== END 2024-07-29 10:50 | disposition home or self-care (01) ==
LOC: HO.LAB 10:49
DX: Z00.00 Encounter for general adult medical examination without abnormal findings (principal); R73.03 Prediabetes; M54.50 Low back pain, unspecified
CPT/HCPCS: 36415; 72100; 80053; 80061; 81003; 82306; 83036; 84443; 85025

== ENCOUNTER → 2024-07-29 11:15 | Outpatient (BNV) | payer MEDICAID, SELFPAY | PROVIDERS: Visit Provider Radiology Diagnostic Radiology | DX: M41.86 Other forms of scoliosis, lumbar region (principal); M47.896 Other spondylosis, lumbar region | CPT/HCPCS: 72100 ==

== ENCOUNTER 2024-09-08 10:09 | Outpatient (AMB) | payer MEDICAID, SELFPAY ==
--- NOTE | 2024-09-08 10:11 | A.OFFPC_ITS ---
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 Name: Used tablet: [id number] Keshav Accompanied by: Son Allergies aspirin Allergy (Verified 09/08/24 10:57) Anaphylaxis Medication List - Last Reconciled 09/08/24 by SHERRON Bell atorvastatin 10 mg PO BEDTIME cholecalciferol (vitamin D3) 25 mcg PO DAILY lisinopril 10 mg PO DAILY tizanidine 2 mg PO TID PRN Tobacco use date assessed: 09/08/24 Fall risk assessment: No Falls in past year Last assessed Fall Risk: 09/08/24 Dental Screening Dental Screen Date: 09/08/24 Did you have a dental visit in the last 12 months?: Yes Did you have a dental problem in the last 6 months where you did not have access to dental care?: No Was dental information given to patient?: Patient has dentist HPI annual physical HPI Details Patient presenting for annual physical Dentist: up to date Eye: up to date Snellen: Right: Left: Corrected vision: glasses STI screening: Colonoscopy: 2 years ago-repeat in five years, due 2027 mammogram: 2 years ago-order placed Dexa Scan: ordered Pap Smer: PHQ-9: Flu: COVID: no Tdap: up to date Diet: regular Exercise:unable to due to chronic pain PFSH Medical History (Updated 09/13/24 @ 22:47 by SHERRON Bell) Scoliosis HTN (hypertension) Pre-diabetes High cholesterol Osteoporosis Surgical History H/O total hysterectomy Family History Maternal Grandfather Alzheimer dementia Maternal Grandmother Glaucoma Sister High cholesterol Unknown Diabetes Social History Household Members Other:: Adult son Housing: Apartment Are you a primary tree care foreman to a significant other at home: No Alcohol intake: never Patient Tobacco Use Status: Never used Tobacco e-Cigarette/Vaping Use: Never Used Second Hand Smoke Exposure: No service: No Cognitive needs: No Hearing needs: No Vision needs: Yes (Glasses) Questionnaire PHQ-9 Over the last 2 weeks, how often have you been bothered by any of the following problems? 1. Little interest or pleasure in doing things: not at all 2. Feeling down, depressed, or hopeless: not at all 3. Trouble falling or staying asleep, or sleeping too much: not at all 4. Feeling tired or having little energy: not at all 5. Poor appetite or overeating: not at all 6. Feeling bad about yourself - or that you are a failure or have let yourself or your family down: not at all 7. Trouble concentrating on things, such as reading the newspaper or watching television: not at all 8. Moving or speaking so slowly that other people could have noticed. Or the opposite - being so fidgety or restless that you have been moving around a lot more than usual: not at all 9. Thoughts that you would be better off or of hurting yourself in some way: not at all Total score: 0 Depression Screening Interpretation: Negative Depression Screening Done: Yes Source: Developed by Drs. Ton Krause, Ángela Guevara, Kash Gibson and colleagues, with an educational any from [employer]. Thrive Questionnaire Date Thrive assessed: 09/08/24 I am a: Patient What is your living situation today?: I have a steady place to live Within the past 12 months, did the food you bought not last and you didn't have the money to get more?: Never true Within the past 12 months, did you worry whether your food would run out before you got money to buy more?: Never true Do you have trouble paying for medicines?: No Do you have trouble getting transportation to medical appointments?: No Do you have trouble paying your heating and electricity bill?: No Do you have trouble taking care of your child, family member or friend?: No Do you have trouble with day-to-day activities such as bathing, preparing meals, shopping, managing finances, etc.?: No Are you currently unemployed and looking for a job?: No Are you interested in more education?: No Please select the resources that you would like help with: None Currently or been in a relationship where the following occur: No concerns reported THRIVE Score: 0 AUDIT C Alcohol Use Questionnaire (AUDIT-C) 1. How often do you have a drink containing alcohol?: Never Total Score: 0 Score Reviewed/Action Taken: No LEIA-7 AMB Questionnaire LEIA-7 Date LEIA - 7 assessed: 09/08/24 Feeling nervous, anxious, or on edge: 1 = Several days Not being able to stop or control worryin = Not at all Worrying too much about different things: 0 = Not at all Trouble relaxin = Several days Being so restless that it is hard to sit still: 0 = Not at all Becoming easily annoyed or irritable: 0 = Not at all Feeling afraid as if something awful might happen: 0 = Not at all Total LEIA-7 score (0-4 normal; 5-9 mild; 10-14 moderate; 15-21 severe): 2 Source: Developed by Drs. Ton Krause, Ángela Guevara, Kash Gibson and colleagues, with an educational any from [employer]. Review of Systems Const Denies headache(s) Eyes Denies loss of vision ENT Denies vertigo, Denies dizziness, Denies headache(s) and Denies sore throat Card Denies chest pain, Denies leg edema and Denies lightheadedness Resp Denies cough, Denies hemoptysis and Denies wheezing GI Denies abdominal pain, Denies melena, Denies constipation, Denies diarrhea and Denies vomiting Denies urinary frequency, Denies dysuria and Denies urinary urgency Musc Reports back pain (Thoracic and lumbar), Denies arthralgias, Denies joint swelling, Denies numbness and Denies tingling Neuro Denies Abnormal speech present, Denies behavioral changes, Denies vertigo, Denies dizziness, Denies headache(s), Denies loss of vision, Denies memory loss, Denies numbness and Denies tingling Psych Denies anxiety, Denies behavioral changes, Denies depression, Denies memory loss and Denies panic attacks Andrew/Lymph Denies easy bleeding and Denies easy bruising Aller/Immun Denies wheezing Physical exam (Primary Care) Vital Signs: Last Vital Signs Temp 98.5 F 09/08/24 10:12 Pulse 98 09/08/24 10:12 Resp 16 09/08/24 10:12 BP 118/60 09/08/24 10:12 Pulse Ox 98 09/08/24 10:12 Oxygen Delivery Method Room Air 09/08/24 10:12 BMI result Body Mass Index 20.7 Tobacco/Smoking Status: Tobacco use Status Tobacco use date assessed 09/08/24 09/08/24 10:24 Patient Tobacco Use Status Never used Tobacco 09/08/24 10:24 e-Cigarette/Vaping Use Never Used 09/08/24 10:24 PHQ-9: PHQ-9 Score PHQ-9: Total score 0 09/08/24 10:59 Depression Screening Interpretation: Negative Thrive Assessment: Date of Thrive Assessment Date Thrive assessed 09/08/24 09/08/24 10:24 Currently or been in a relationship where the following occur: No concerns reported Const General: healthy appearing, no acute distress, alert and awake Nutritional Appearance: well nourished Orientation/consciousness: oriented to person, oriented to place and oriented to time HENMT Ears: TM's normal bilaterally General nose exam: Normal nasal mucous membranes and turbinates present Eyes Conjunctivae: conjunctivae normal Sclerae: sclerae normal Pupils: Equal, round and reactive pupils present Neck Neck: Yes no lymphadenopathy and Yes no JVD Thyroid: Thyroid normal Carotids: no bruits Resp Effort & Inspection: normal respiratory effort and not tachypneic Auscultation: no crackles, no rales, no rhonchi and no wheezes Cardio Rate: regular rate Rhythm: regular rhythm Heart sounds: no murmurs and normal S1 and S2 GI Palpation (GI): Soft to palpation, nontender, no hepatomegaly and no splenomegaly Auscultation: normal bowel sounds Back/Spine/Pelvis Thoracic/Lumbar Spine: thoracic spinal tenderness and lumbar spinal tenderness Skin General skin exam: no rashes or lesions noted and dry skin Neuro General: oriented to person, oriented to place and oriented to time Cranial nerves: Yes Equal, round and reactive pupils present Speech: No Abnormal speech present Gait exam (Neuro): Normal gait present Motor exam (neuro): no tremor noted Extrem Right upper extremity: full ROM Left upper extremity: full ROM Right lower extremity: full ROM; no edema Left lower extremity: full ROM; no edema Psych Mental Status: mental status grossly normal Speech and movement: Normal speech and movement present Affect: normal affect Attitude: cooperative Thought process: Normal thought process present Results Reviewed Results Reviewed: Laboratory Tests 07/29/24 07/29/24 11:05 11:06 WBC 4.7 L RBC 4.38 Hgb 13.1 Hct 40.5 MCV 92.5 MCH 29.9 RDW 14.2 Plt Count 251 Sodium 144 Potassium 4.6 Chloride 107 Carbon Dioxide 30 H Anion Gap 12 BUN 11 Creatinine 0.65 Estimated GFR > 60 Fasting Glucose 97 Estimat Average Glucose 120 Hemoglobin A1c % 5.8 Calcium 9.8 Total Bilirubin 0.5 AST 23 ALT 15 Alkaline Phosphatase 101 Total Protein 7.2 Albumin 4.3 Triglycerides 75 Cholesterol 272 H LDL Cholesterol, Calc 171 H HDL Cholesterol 86 25-OH Vitamin D Total 29.6 L TSH 1.52 Urine Color Yellow Urine Appearance Clear Urine pH 6.0 Ur Specific [place] 1.020 Urine Protein Negative Urine Glucose (UA) Negative Urine Ketones 15 Urine Blood Negative Urine Nitrite Negative Ur Leukocyte Esterase Negative Coding Level of Care Code Est Pt Prev Care >65y(65977) Diagnoses Annual physical exam Z00.00 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 M54.41; G89.29 Chronicity: chronic Back pain laterality: left Sciatica presence: with sciatica Sciatica laterality: sciatica of right side Pre-diabetes R73.03 Osteoporosis, unspecified osteoporosis type, unspecified pathological fracture presence M81.0 Osteoporosis type: unspecified Presence of current pathological fracture: unspecified High cholesterol E78.00 Hypertension, unspecified type I10 Hypertension type: unspecified Scoliosis of thoracic spine, unspecified scoliosis type M41.9 Scoliosis type: unspecified scoliosis Spinal region: thoracic Vitamin D deficiency E55.9 Time Spent (min) 39 Assessment & Plan Assessment & Plan (1) Annual physical exam: Code(s): Z00.00 - Encounter for general adult medical examination without abnormal findings Category: Medical Plan: Preventative guidelines and recent labs reviewed with the patient. DEXA scan was ordered and mammogram was ordered for the patient. 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 Patient was referred to pain management (3) Pre-diabetes: Code(s): R73.03 - Prediabetes Category: Medical Plan: A1c 5.8%, reinforced low sugar/carbohydrate diet and activity as tolerated (4) Osteoporosis: Code(s): M81.0 - Age-related osteoporosis without current pathological fracture Category: Medical Qualifiers: Osteoporosis type: unspecified Presence of current pathological fracture: unspecified Qualified Code(s): M81.0 - Age-related osteoporosis without current pathological fracture Plan: DEXA scan ordered (5) High cholesterol: Code(s): E78.00 - Pure hypercholesterolemia, unspecified Category: Medical Plan: Patient reports a history of high cholesterol she is not on any medication for this. Reports that she just has been eating better and walking frequently. Total cholesterol 277, LDL 171, HDL 86. Atorvastatin 10 mg at bedtime ordered. Encouraged low-cholesterol/carbohydrate diet and activity as tolerated (6) HTN (hypertension): Code(s): I10 - Essential (primary) hypertension Category: Medical Qualifiers: Hypertension type: unspecified Qualified Code(s): I10 - Essential (primary) hypertension Plan: Reports hypertension. Reports taking lisinopril for about 8 years. Reports taking half of the medication at times. Per patient she takes what she needs. Reinforced low-sodium diet. Blood pressure within normal limits in office. Continue lisinopril 10 mg daily (7) Scoliosis: Code(s): M41.9 - Scoliosis, unspecified Category: Medical Qualifiers: Scoliosis type: unspecified scoliosis Spinal region: thoracic Qualified Code(s): M41.9 - Scoliosis, unspecified Plan: Patient reports that her back is painful but she does not like taking medications. She has been dealing with this by resting and stretching. 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 The patient was referred to pain management. (8) Vitamin D deficiency: Code(s): E55.9 - Vitamin D deficiency, unspecified Category: Medical Plan: Vitamin-D3 25 mcg ordered Plan Patient to follow up in 3 months and to complete prescheduled labs before appointment Orders: Orders Complete Blood Count Auto Diff 3 Months E50.9 - Vitamin A deficiency, unspecified, E78.00 - Pure hypercholesterolemia, unspecified, I10 - Essential (primary) hypertension, M54.50 - Low back pain, unspecified, R73.03 - Prediabetes Vitamin D 25-OH Total 3 Months E50.9 - Vitamin A deficiency, unspecified, E78.00 - Pure hypercholesterolemia, unspecified, I10 - Essential (primary) hypertension, M54.50 - Low back pain, unspecified, R73.03 - Prediabetes Glucose Fasting 3 Months E50.9 - Vitamin A deficiency, unspecified, E78.00 - Pure hypercholesterolemia, unspecified, I10 - Essential (primary) hypertension, M54.50 - Low back pain, unspecified, R73.03 - Prediabetes Comprehensive [place]. Panel Fast 3 Months E50.9 - Vitamin A deficiency, unspecified, E78.00 - Pure hypercholesterolemia, unspecified, I10 - Essential (primary) hypertension, M54.50 - Low back pain, unspecified, R73.03 - Prediabetes UA CC w/rflx Micro + Cult 3 Months E50.9 - Vitamin A deficiency, unspecified, E78.00 - Pure hypercholesterolemia, unspecified, I10 - Essential (primary) hypertension, M54.50 - Low back pain, unspecified, R73.03 - Prediabetes TSH reflex Free T4 3 Months E50.9 - Vitamin A deficiency, unspecified, E78.00 - Pure hypercholesterolemia, unspecified, I10 - Essential (primary) hypertension, M54.50 - Low back pain, unspecified, R73.03 - Prediabetes Lipid Panel 3 Months E50.9 - Vitamin A deficiency, unspecified, E78.00 - Pure hypercholesterolemia, unspecified, I10 - Essential (primary) hypertension, M54.50 - Low back pain, unspecified, R73.03 - Prediabetes Medications: New 2 cholecalciferol (vitamin D3) 25 mcg PO DAILY 90 caps 2RF
[2024-09-08 10:12] VITALS: BP 118/60; PULSE 98; RESP 16; TEMP 36.9; O2SAT 98; BMI 20.7
--- OUTSIDE RECORDS SUMMARY | 2024-09-08 11:37 | XMS_ITS | Clinical Summary ---
Author Organization [facility] Address [address] [place] [address] Care Team Providers [employer] Operator Name Role Phone David Atwood MD Primary Care Provider [phone] Allergies Active Allergy Reactions Criticality Noted Date [...] ( - 2023-2 5 season) 2024 Influenza (Season Ended) 2025 RSV (1 - 1-dose 75+ series) 10/13/2027 [...] Smear Discontinued Zoster (Zostavax) Discontinued Care Teams [employer] Operator Relationship Specialty Start Date End Date David Atwood MD [facility] [address] [place] [address] PCP - General 11/03/08
== END 2024-09-08 11:09 | disposition home or self-care (01) ==
LOC: HO.HMCH 10:10
DX: Z00.00 Encounter for general adult medical examination without abnormal findings (principal); M54.41 Lumbago with sciatica, right side; G89.29 Other chronic pain; R73.03 Prediabetes; M81.0 Age-related osteoporosis without current pathological fracture; E78.00 Pure hypercholesterolemia, unspecified; I10 Essential (primary) hypertension; M41.9 Scoliosis, unspecified; E55.9 Vitamin D deficiency, unspecified

== ENCOUNTER → 2024-09-08 10:09 | Outpatient (BNVA) | payer MEDICAID, SELFPAY | DX: Z00.00 Encounter for general adult medical examination without abnormal findings (principal); M54.41 Lumbago with sciatica, right side; G89.29 Other chronic pain; R73.03 Prediabetes; M81.0 Age-related osteoporosis without current pathological fracture; E78.00 Pure hypercholesterolemia, unspecified; I10 Essential (primary) hypertension; M41.9 Scoliosis, unspecified; E55.9 Vitamin D deficiency, unspecified; Z79.899 Other long term (current) drug therapy | CPT/HCPCS: 99397 ==